=== PATIENT | male | born 1935 | race African-American/Black ===

== ENCOUNTER 2021-05-09 18:35 | Emergency (ER) | payer BC ==
[~2021-05-09] VITALS: Ht 177.8 cm; Wt 80.0 kg
[2021-05-09] MEDS ORDERED: FENTANYL CITRATE/PF 50MCG/ML 2ML VIAL IV ONE (19:30)
[2021-05-09] MEDS ORDERED: LIDOCAINE 5% PATCH TOP SCH (19:30)
[2021-05-09 20:11] LABS: CHLORIDE 105 mEq/L (98-107)
[2021-05-09 20:13] LABS: BASOPHILS % 0.2 % (0.0-2.0); EOSINOPHILS % 1.1 % (0.0-5.0); HEMATOCRIT. 40.1 % (42.0-52.0); HEMOGLOBIN. 13.7 g/dL (14.0-18.0); LYMPHOCYTES % 15.2 % (20.0-50.0); MEAN CORPUSCULAR HEMOGLOBIN 31.5 pg (28.0-32.0); MEAN CORPUSCULAR VOLUME 92.3 fL (80.0-94.0); MEAN PLATELET VOLUME 8.3 fl (7.4-10.4); NEUTROPHILS % 74.5 % (40.0-76.0); PLATELET 154 x1000/uL (130-400); RED BLOOD CELL COUNT 4.34 mill/uL (4.7-6.1); RED CELL DISTRIBUTION WIDTH 13.4 % (11.6-14.6)
[2021-05-09 23:30] VITALS: BP 137/74
[2021-05-09] MEDS ORDERED: HYDR-4001 MT (23:53)
== END 2021-05-10 00:01 | disposition home or self-care (01) ==
LOC: ER 18:35
DX: S32.049A Unspecified fracture of fourth lumbar vertebra, initial encounter for closed fracture (principal); I44.7 Left bundle-branch block, unspecified; I10 Essential (primary) hypertension; E78.5 Hyperlipidemia, unspecified; W01.0XXA Fall on same level from slipping, tripping and stumbling without subsequent striking against object, initial encounter; Y93.K1 Activity, walking an animal; Y92.488 Other paved roadways as the place of occurrence of the external cause; Z98.890 Other specified postprocedural states
CPT/HCPCS: 36415; 72131; 74176; 80053; 85025; 93005; 96374; 99285; J3010